=== PATIENT | female | born 1975 | race Caucasian/White ===

== ENCOUNTER 2019-12-04 08:53 | Emergency (ER) | payer MEDICAID ==
[~2019-12-04] VITALS: Ht 149.9 cm; Wt 86.9 kg
[~2019-12-04 08:53] MED LIST: BIOTIN PO; FISH OIL PO; IRON PO
[2019-12-04 08:55] VITALS: BP 91/73
[2019-12-04] MEDS ORDERED: ONDANSETRON ODT 4 MG ONE (09:25)
[2019-12-04] MEDS ORDERED: MECLIZINE CHEWABLE 25 MG TAB ONE (09:25)
[2019-12-04] MEDS ORDERED: MECLIZINE CHEWABLE 25 MG TAB PO ONE (09:30)
[2019-12-04] MEDS ORDERED: ONDANSETRON ODT 4 MG PO ONE (09:30)
--- NOTE | 2019-12-04 11:04 | NUR ---
TASK RN: PT GIVEN DC INSRUCTIONS AND PER REQUEST USED WHEELCHAIR TO LOBBY, PTS SON TO STATISTICAL PROGRAMMER IN 20 MIN. PT WOULD LIKE TO WAIT IN LOBBY, AMBULATED WITH STEADY GAIT
== END 2019-12-04 11:06 | disposition home or self-care (01) ==
LOC: ED 09:46
DX: R42 Dizziness and giddiness (principal); R11.2 Nausea with vomiting, unspecified; R94.31 Abnormal electrocardiogram [ECG] [EKG]; F17.200 Nicotine dependence, unspecified, uncomplicated
CPT/HCPCS: 93005; 99283; Q0162